=== PATIENT | female | born 1960 | race Caucasian/White ===

== ENCOUNTER 2017-02-14 20:49 | Emergency (ER) | payer MEDICAID ==
[~2017-02-14] VITALS: Ht 170.2 cm; Wt 143.8 kg
[~2017-02-14 20:49] MED LIST: AEROCHAMBER; ALBUTEROL-200 PUFFS/ IH; ASPIRIN81 MG PO; CIPRO 750MG TA750 MG OR; CLOPIDOGREL75 MG PO; COREG25 MG PO; ELAVIL25 MG PO; FENTANYL; FENTANYL 1100 MCG/E1 TD; GOLYTELY 44000 ML/BO PO; HYDRALAZINE100 MG PO; IMDUR 60MG. TAB60 MG PO; KEFLEX 500MG.500 MG PO; LASIX 40MG. TAB40 MG PO; LIPITOR80 M1 PO; LISINOPRIL 20MG20 MG; LORTAB 500 MG-71 TAB; NEURONTIN800 MG PO; NICOTINE PATCH;21 MG TD; OXYCODONE HCL10 M1 PO; PERCOCET 325 MG1 TA3 PO; PREDNISONE 20MG20 MG PO; SYNTHROID 0.0.075 MG PO; TIZANIDINE HCL 44 MG NG; TIZANIDINE HCL 44 MG PO; TRAMADOL 50MG T50 MG PO; [UNRECOGNIZED DRUG - OTHER]; [UNRECOGNIZED DRUG - OTHER]
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
[2017-02-15 00:11] VITALS: BP 162/71
--- NOTE | 2017-02-15 06:21 | RADIOLOGY REPORT PS360 ---
HIP RT 2-3V W/PELVIS IF PERFOR HISTORY: Pain following injury FALL ORDERING PHYSICIAN: Hernando Mahoney MD PATIENT AGE: 57 years COMPARISON: None FINDINGS: No fracture or dislocation is evident. No significant degenerative change. No lytic or blastic change. Unremarkable soft tissues IMPRESSION: Negative right hip
--- NOTE | 2017-02-15 06:29 | RADIOLOGY REPORT PS360 ---
KNEE-3 VIEWS-LT HISTORY: Pain following injury FALL ORDERING PHYSICIAN: Hernando Mahoney MD PATIENT AGE: 57 years FINDINGS: Severe osteoarthritic changes are present involving all 3 compartments greatest at the patellofemoral joint. These findings have advanced compared to 12/04/2011. No acute fracture or dislocation. IMPRESSION: 1. No acute fracture. 2. Severe osteoarthritis
--- NOTE | 2017-02-15 06:31 | RADIOLOGY REPORT PS360 ---
KNEE-3 VIEWS-RT HISTORY: Pain following injury FALL ORDERING PHYSICIAN: Hernando Mahoney MD PATIENT AGE: 57 years COMPARISON: 12/04/2011 FINDINGS: There are moderate to severe osteoarthritic changes involving all 3 compartments greatest at the patellofemoral joint with prominent osteophytes in all 3 compartments. No acute fracture or dislocation. IMPRESSION: 1. No acute fracture. 2. Moderate to severe osteoarthritis which has progressed since 12/04/2011
--- NOTE | 2017-02-15 06:33 | RADIOLOGY REPORT PS360 ---
EXAM: LUMBAR SPINE 5 VIEWS HISTORY: Pain following injury fall ORDERING PHYSICIAN: Hernando Mahoney MD PATIENT AGE: 57 years COMPARISON: None FINDINGS: The study is very limited especially the lateral views. No obvious fracture. Minimal anterolisthesis L4 on L5 of 3 mm. Mild facet arthritic change at L4-L5 and S1. Clips are present over the abdomen. IMPRESSION: Grossly no acute finding
== END 2017-02-15 00:11 | disposition home or self-care (01) ==
LOC: ER 20:49
DX: S83.91XA Sprain of unspecified site of right knee, initial encounter (principal); S33.5XXA Sprain of ligaments of lumbar spine, initial encounter; S83.92XA Sprain of unspecified site of left knee, initial encounter; S73.101A Unspecified sprain of right hip, initial encounter; Z79.899 Other long term (current) drug therapy; I10 Essential (primary) hypertension; K21.9 Gastro-esophageal reflux disease without esophagitis; Z72.0 Tobacco use; W01.0XXA Fall on same level from slipping, tripping and stumbling without subsequent striking against object, initial encounter; Y92.007 Garden or yard of unspecified non-institutional (private) residence as the place of occurrence of the external cause